=== PATIENT | male | born 1985 | race Caucasian/White ===

== ENCOUNTER 2016-10-19 16:11 | Emergency (ER) | payer OTHER | END 2016-10-19 17:15 | disposition home or self-care (01) | LOC: ER1 16:11 | DX: S46.911A Strain of unspecified muscle, fascia and tendon at shoulder and upper arm level, right arm, initial encounter (principal); F17.210 Nicotine dependence, cigarettes, uncomplicated; X50.3XXA Overexertion from repetitive movements, initial encounter | CPT/HCPCS: 96372; 99283; J1100; J1885 ==

== ENCOUNTER → 2016-10-27 | Outpatient (CLI) | payer SELFPAY | LOC: KOH-I 14:57 | DX: M25.511 Pain in right shoulder (principal); M54.2 Cervicalgia | CPT/HCPCS: 72050; 73030 ==

== ENCOUNTER 2021-08-25 10:11 | Emergency (ER) | payer OTHER ==
[2021-08-25] MEDS ORDERED: VIGAMOX3 ML EYEBOTH (12:56)
[2021-08-25] MEDS ORDERED: NAPROSYN500 MG PO (12:56)
== END 2021-08-25 13:34 | disposition home or self-care (01) ==
LOC: ER1 10:11
DX: S05.02XA Injury of conjunctiva and corneal abrasion without foreign body, left eye, initial encounter (principal); S05.01XA Injury of conjunctiva and corneal abrasion without foreign body, right eye, initial encounter; H10.33 Unspecified acute conjunctivitis, bilateral; F17.200 Nicotine dependence, unspecified, uncomplicated; X58.XXXA Exposure to other specified factors, initial encounter
CPT/HCPCS: 96372; 99282; J1885